=== PATIENT | female | born 1975 | race American Indian/Alaskan Native ===

== ENCOUNTER 2018-09-12 14:39 | Outpatient (CLI) | payer OTHER ==
--- NOTE | 2018-09-13 03:18 | XRay Report ---
PROCEDURE: XR SPINE CERVICAL 2-3V TECHNIQUE: 3 views of the cervical spine HISTORY: SCIATICA COMPARISONS: No priors FINDINGS: There is straightening of the cervical lordosis which may reflect muscle spasm or may be positional. Intervertebral disc spaces are preserved. No prevertebral soft tissue swelling. No evidence of acute cervical spine fracture. IMPRESSION: Straightening of the cervical lordosis which may reflect muscle spasm or may be positional. Limited evaluation based on the 3 views obtained.. This document is electronically signed by Wilfredo Ojeda MD., Sep 13 2018 03:15:09 AM ET
--- NOTE | 2018-09-13 03:19 | XRay Report ---
PROCEDURE: XR SPINE LUMBOSACRAL 2-3V TECHNIQUE: 3 views obtained of the lumbar spine HISTORY: SCIATICA COMPARISONS: No priors FINDINGS: No acute lumbar fracture. Mild narrowing of the L5-S1 intervertebral disc space. No spondylolisthesis. Vertebral endplate bony spurring at L4 and L5. Mild scoliotic curvature of the lumbar spine with convexity towards the right. IMPRESSION: Mild narrowing of the L5-S1 intervertebral disc space. Vasculitic curvature of the lumbar spine.. This document is electronically signed by Wilfredo Ojeda MD., Sep 13 2018 03:17:19 AM ET
== END 2018-09-12 14:40 | disposition home or self-care (01) ==
LOC: XRAY 14:39
PROVIDERS: ATTEND Chiropractor
DX: M48.07 Spinal stenosis, lumbosacral region (principal); M41.86 Other forms of scoliosis, lumbar region; M54.17 Radiculopathy, lumbosacral region; M54.6 Pain in thoracic spine; M54.2 Cervicalgia
CPT/HCPCS: 72040; 72100

== ENCOUNTER 2020-04-05 06:30 | Day surgery (SDC) | payer OTHER ==
[2020-04-05] MEDS ORDERED: SODIUM CHLORIDE 0.9% 500 ML 500 ML IV SCH (08:00)
--- NOTE | 2020-04-05 08:06 | Anesthesia Consultation ---
Anesthesia Consult and Med Hx Date of service: 04/05/20 - Airway Anesthetic Teeth Evaluation: Good ROM Head & Neck: Adequate Mental/Hyoid Distance: Adequate Mallampati Class: Class II Intubation Access Assessment: Probably Good - Pre-Operative Health Status ASA Pre-Surgery Classification: ASA2 Proposed Anesthetic Plan: MAC - Cardiovascular System Hx Hypertension: Yes Hx Heart Murmur: Yes - Central Nervous System Hx Psychiatric Problems: No - Other Systems Hx Cancer: Yes (left breast CA (2019), s/p mastectomy, chemo, radiation) Hx Obesity: Yes (BMI 36.6)
--- NOTE | 2020-04-05 08:07 | Anesthesia Day of Surgery ---
Anesthesia Day of Surgery - Day of Surgery Patient Examined: Yes Patient H&P Reviewed: Yes Patient is NPO: Yes Beta Blockers: Yes (last night)
[2020-04-05] MEDS ORDERED: fentaNYL 100 MCG/2 ML INJ ONE (08:08)
[2020-04-05] MEDS ORDERED: HEPARIN/NS 5000 UNIT/500ML 1,000 ML IR ONE (08:08)
[2020-04-05] MEDS ORDERED: MIDAZOLAM 2 MG/2 ML INJ ONE (08:08)
[2020-04-05] MEDS: LIDOCAINE (2%) 20 MG/1 ML VIAL 20 ML MDV INFILTRATI ONE ×2 (08:42→08:47)
[2020-04-05] MEDS: HEPARIN 10,000 UNITS/10 ML VIAL ONE ×3 (08:43→08:49)
[2020-04-05] MEDS: VERAPAMIL 5 MG/2 ML INJ ONE ×3 (08:43→08:49)
[2020-04-05] MEDS: NITROGLYCERIN SYRINGE 3 ML ONE ×2 (08:44→08:49)
[2020-04-05] MEDS ORDERED: METOPROLOL TARTRATE 5 MG/5 ML INJ IV ONE (08:49)
[2020-04-05] MEDS ORDERED: traMADol 50 MG TAB PO PRN (09:17)
[2020-04-05] MEDS ORDERED: HYDROcodone/ACETAMINOPHEN 5-325 MG TAB PO PRN (09:17)
--- NOTE | 2020-04-05 09:21 | Short Stay Summary ---
Short Stay Documentation Date of service: 04/05/20 - History H&P: obtained from office - Allergies and Medications Current Medications: Allergies No Known Allergies Allergy (Verified 04/05/20 07:30) Home Medications Medication Instructions Recorded Confirmed Last Taken Type Aspirin [Aspirin BABY CHEW TAB] 81 mg PO QDAY 04/05/20 04/05/20 04/05/20 07:00 History 1 tab Metoprolol Succinate [Toprol Xl] 100 mg PO DAILY 04/05/20 04/05/20 04/04/20 History 1 tab Active Medications Sodium Chloride (Nacl 0.9% 500 Ml) 500 mls @ 50 mls/hr IV DIRECT RACHEL Stop: 04/05/20 17:59 - Brief post op/procedure progress note Date of procedure: 04/05/20 Pre-op diagnosis: cp Post-op diagnosis: same Procedure: see report Anesthesia: local Estimated blood loss: minimal Pathology: none - Disposition Condition at discharge: Good Disposition: DC-01 TO HOME OR SELFCARE - Discharge Diagnoses (1) Abnormal stress test Status: Resolved (2) Chest pain Status: Chronic Qualifiers: Chest pain type: unspecified Qualified Code(s): R07.9 - Chest pain, unspecified Short Stay Discharge Plan Activity: advance as tolerated Diet: low fat, low cholesterol Wound: keep clean and dry Follow up with: MADISON ALFRED MD [Primary Care Provider] - 7 Days
[2020-04-05 11:44] VITALS: BP 123/72
--- NOTE | 2020-04-05 14:21 | Cardiac Catherization Report ---
PRIMARY CARE PHYSICIAN Dr. Bonner. PRIMARY STAGE SETTINGS PAINTER: Dr. Hansen. CLINICAL INFORMATION: This is a 45-year-old -[place] female having recurrent chest pain with mildly abnormal stress test, here for left heart catheterization for suspected coronary artery disease. The patient was done with moderate sedation, started at 8:39 a.m., finished at 8:55, which is 60 minutes of moderate sedation. Procedure was done via the right radial artery, sterile technique, local anesthesia, 6-Wallisian radial sheath inserted. Left system engaged JL3.5 catheter following findings: Left main is large and patent, bifurcates into large LAD, is a wraparound, LAD is patent. Diagonal 1 medium caliber vessel, patent. Circumflex is a large caliber vessel and the AV groove is patent. OM1 is small caliber vessel, patent. OM2 and 3 are small to medium caliber vessel, patent. RCA is a codominant vessel, small to medium caliber vessel, patent. Small PDA. LV gram done in NAYELI and CHAN view shows normal LV function. LVEDP is 17 mmHg. LV is 140. Aortic is 140/77. No gradient across the aortic valve on pullback. 5-Wallisian catheters all taken over a guidewire. 6-Wallisian radial sheath was discontinued. Radial band applied. No hematoma, no bleeding. SUMMARY: Normal coronaries codominant system. Continue risk factor modification. JOB# [id number] NAS/SAMUEL
== END 2020-04-05 12:20 | disposition home or self-care (01) ==
LOC: CATHLABREC 06:30
PROVIDERS: ATTEND Internal Medicine
DX: R07.89 Other chest pain (principal); R94.39 Abnormal result of other cardiovascular function study; I10 Essential (primary) hypertension; K21.9 Gastro-esophageal reflux disease without esophagitis; Z87.440 Personal history of urinary (tract) infections; Z79.82 Long term (current) use of aspirin; Z79.899 Other long term (current) drug therapy; Z85.3 Personal history of malignant neoplasm of breast; Z98.890 Other specified postprocedural states; Z68.36 Body mass index [BMI] 36.0-36.9, adult
CPT/HCPCS: 93005; 93458; 99156; C1894; J1644; J2250; J3010; J7040; Q9967